=== PATIENT | male | born 1980 | race African-American/Black ===

== ENCOUNTER 2017-03-04 13:43 | Emergency (ER) | payer SELFPAY ==
[~2017-03-04] VITALS: Ht 190.5 cm; Wt 72.6 kg
[2017-03-04 13:50] VITALS: BP 126/80
[2017-03-04] MEDS ORDERED: KETOROLAC TROMETHAMINE INJ 30 MG/ML VIAL IM ONE (14:00)
[2017-03-04] MEDS ORDERED: KETOROLAC TROMETHAMINE INJ 30 MG/ML VIAL ONE (14:06)
[2017-03-04] MEDS ORDERED: IBUPROFEN 400 MG TABLET ONE (14:27)
--- NOTE | 2017-03-04 14:32 | NUR ---
PT REFUSED TORADOL, STATES HE DOES NOT WANT A SHOT. ORDER FOR IBUPROFEN 800MG RECEIVED AND ADMINISTERED.
[2017-03-04] MEDS ORDERED: IBUPROFEN 400 MG TABLET PO ONE (15:00)
== END 2017-03-04 16:05 | disposition home or self-care (01) ==
LOC: ER 13:45
DX: S70.12XA Contusion of left thigh, initial encounter (principal); Z88.8 Allergy status to other drugs, medicaments and biological substances; W22.8XXA Striking against or struck by other objects, initial encounter; Y93.89 Activity, other specified; Y92.89 Other specified places as the place of occurrence of the external cause; Y99.9 Unspecified external cause status
CPT/HCPCS: 73550-TC; A4606; J1885; Z7610

== ENCOUNTER 2018-12-19 19:33 | Inpatient (IN) | payer OTHER ==
[~2018-12-19] VITALS: Ht 190.5 cm; Wt 78.0 kg
[~2018-12-19 19:33] MED LIST: RIVA10TA PO
--- NOTE | 2018-12-19 19:45 | NUR ---
JASSI TOMLIN AT BEDSIDE.
--- NOTE | 2018-12-19 19:45 | NUR ---
PT CAME TO EMERGENCY COMPLAINING OF R SIDE CHEST PAIN 9/10 NON RADIATING, THAT STARTED 30 MIN AGO. PT STATES HE HAS A HX OF DVT. PT AAXO4. RESPIRATIONS EVEN AND UNLABORED. PT PUT ON THE MONITOR AND PULSE OX. PENDING EVAL FROM ER .
--- NOTE | 2018-12-19 19:47 | NUR ---
MULE PACKER AT BEDSIDE. LABS SENT.
--- NOTE | 2018-12-19 19:50 | NUR ---
EMT AT BEDSIDE FOR EKG.
[2018-12-19] MEDS ORDERED: KETOROLAC TROMETHAMINE 15 MG/ML VIAL ONE (19:58)
[2018-12-19 19:59] LABS: BASOPHILS % (AUTO) 0.7 % (0.0-2.0); EOSINOPHILS % (AUTO) 0.5 % (0.0-6.0); HEMATOCRIT 44 % (39-51); HEMOGLOBIN 14.2 g/dL (13.5-17.5); LYMPHOCYTES # (AUTO) 2.1 /CMM (0.8-4.8); LYMPHOCYTES % (AUTO) 29.5 % (20.0-44.0); MEAN CORPUSCULAR HGB CONC 32 g/dl (31.0-36.0); MEAN CORPUSCULAR VOLUME 90 fL (80-96); MONOCYTES # (AUTO) 0.7 /CMM (0.1-1.30); MONOCYTES % (AUTO) 9.6 % (2.0-12.0); NEUTROPHILS # (AUTO) 4.2 /CMM (1.8-8.9); NEUTROPHILS % (AUTO) 59.7 % (43.0-81.0); PLATELET COUNT (AUTO) 103 /CMM (150-450)
[2018-12-19] MEDS ORDERED: KETOROLAC TROMETHAMINE INJ 30 MG/ML VIAL IV ONE (20:00)
[2018-12-19] MEDS ORDERED: IV NS 0.9% 1,000 ML BAG IV ONE (20:00)
[2018-12-19] MEDS ORDERED: CT SWABBABLE VALVE TRANS SET 1 EA INFUS.SET MC ONE (20:07)
[2018-12-19] MEDS ORDERED: IV NS 0.9% 250 ML IV ONE (20:07)
[2018-12-19] MEDS ORDERED: IOHEXOL-350 100 ML VIAL IV ONE (20:07)
[2018-12-19 20:09] LABS: CALCIUM, SERUM 9.1 mg/dL (8.5-10.1); CREATININE 1.1 mg/dL (0.6-1.3); POTASSIUM 3.9 mmol/L (3.5-5.1)
--- NOTE | 2018-12-19 20:10 | NUR ---
PT TAKEN TO CT.
[2018-12-19 20:15] LABS: ALBUMIN 3.7 g/dL (3.4-5.0); BILIRUBIN,DIRECT 0.1 mg/dL (0.0-0.2); BILIRUBIN,TOTAL 0.3 mg/dL (0.2-1.0); TOTAL PROTEIN, SERUM 7.7 g/dL (6.4-8.2)
--- NOTE | 2018-12-19 20:16 | NUR ---
PT RETURNED FROM CT.
[2018-12-19] MEDS ORDERED: HEPARIN SODIUM, PORCINE 5000 UNITS/1 ML VIAL ONE (20:46)
[2018-12-19] MEDS ORDERED: HEPARIN SODIUM, PORCINE 5000 UNITS/1 ML VIAL IV ONE (21:00)
[2018-12-19] MEDS ORDERED: HEPARIN INFUSION/D5W 500 ML IV ONE (21:00)
[2018-12-19] MEDS ORDERED: ASPIRIN 81 MG TAB.CHEW PO ONE (21:00)
[2018-12-19] MEDS ORDERED: ASPIRIN 81 MG TAB.CHEW ONE (21:03)
--- NOTE | 2018-12-19 21:05 | NUR ---
2ND CALL MELIZA GOTTI PAGED.
--- NOTE | 2018-12-19 21:11 | NUR ---
Patient being monitored and is resting comfortably in bed. NAD noted. Pt saturation at 100%.
--- NOTE | 2018-12-19 21:53 | NUR ---
REPORT GIVEN T FERNANDO PRESCOTT RN FOR [facility].
[2018-12-19] MEDS ORDERED: Z GUARD REMEDY 2 OZ OINT TP PRN (22:00)
[2018-12-19] MEDS ORDERED: MAGNESIUM HYDROXIDE 30 ML UDC PO PRN (22:00)
[2018-12-19] MEDS ORDERED: ACETAMINOPHEN 325 MG TABLET PO PRN (22:00)
[2018-12-19] MEDS ORDERED: ZOLPIDEM TARTRATE 5 MG TABLET PO PRN (22:00)
[2018-12-19] MEDS ORDERED: MAG HYDROX/AL HYDROX/SIMETH 30 ML UDC PO PRN (22:00)
[2018-12-19] MEDS ORDERED: IV D5/ 0.9% NACL 1,000 ML IV PRN (22:00)
[2018-12-19] MEDS ORDERED: MORPHINE SULFATE INJ 2 MG/ML DISP.SYRIN IV PRN (22:00)
[2018-12-19] MEDS ORDERED: ONDANSETRON HCL/PF 4 MG/2 ML VIAL IVP PRN (22:00)
[2018-12-19 22:30] VITALS: BP 147/101
--- NOTE | 2018-12-19 22:30 | NUR ---
ANALOG DESIGN ENGINEER NOTE PT RECEIVED A/O X4 AND ABLE TO VERBALIZE NEEDS. NO C/O CHEST PAIN AT THIS TIME. ON 2L OF NC AND SATURATING WELL. BREATHING REGULAR AND UNLABORED. NO DISTRESS OR DISCOMFORT NOTED. IV RAC #20 CLEAN AND DRY WITH HEPARIN INFUSING. CALL LIGHT WITHIN REACH. WILL MONITOR.
[2018-12-19 23:00] VITALS: BP 145/119
[2018-12-19] MEDS: HEPARIN INFUSION/D5W 500 ML IV PRN (23:12)
[2018-12-19] MEDS: HYDROCODONE/APAP 5/325MG 1 EACH TABLET PO PRN (23:37)
[2018-12-20] VITALS (16 sets, daily range): BP systolic 114–148; BP diastolic 63–89
[2018-12-20 03:12] LABS: BASOPHILS % (AUTO) 0.4 % (0.0-2.0); EOSINOPHILS % (AUTO) 0.3 % (0.0-6.0); HEMATOCRIT 39 % (39-51); HEMOGLOBIN 12.7 g/dL (13.5-17.5); LYMPHOCYTES # (AUTO) 2.6 /CMM (0.8-4.8); LYMPHOCYTES % (AUTO) 38.3 % (20.0-44.0); MEAN CORPUSCULAR HGB CONC 33 g/dl (31.0-36.0); MEAN CORPUSCULAR VOLUME 88 fL (80-96); MONOCYTES # (AUTO) 0.6 /CMM (0.1-1.30); MONOCYTES % (AUTO) 8.5 % (2.0-12.0); NEUTROPHILS # (AUTO) 3.6 /CMM (1.8-8.9); NEUTROPHILS % (AUTO) 52.5 % (43.0-81.0); PLATELET COUNT (AUTO) 86 /CMM (150-450); WHITE BLOOD COUNT (AUTO) 6.8 K/uL (4.3-11.0)
[2018-12-20 03:37] LABS: CALCIUM, SERUM 8.1 mg/dL (8.5-10.1); CREATININE 1.3 mg/dL (0.6-1.3); MAGNESIUM 1.9 mg/dL (1.8-2.4); PHOSPHORUS 3.8 mg/dL (2.5-4.9); POTASSIUM 4.1 mmol/L (3.5-5.1)
[2018-12-20 03:48] LABS: THYROID STIMULATING HORMONE 1.427 uIU/mL (0.358-3.74)
[2018-12-20 05:11] LABS: APPEARANCE,URINE CLEAR (CLEAR); BILIRUBIN,URINE NEGATIVE (NEGATIVE); BLOOD, URINE NEGATIVE Ery/uL (NEGATIVE); COLOR,URINE YELLOW (YELLOW); KETONES,URINE NEGATIVE (NEGATIVE); LEUKOCYTE ESTERASE ,URINE NEGATIVE (NEGATIVE); NITRITE, URINE NEGATIVE (NEGATIVE); PH,URINE 6.5 (5.0-8.0); PROTEIN,URINE NEGATIVE (NEGATIVE); UGLUCOSE NEGATIVE (NEGATIVE); UROBILINOGEN,URINE 0.2 EU/dL (0.2)
[2018-12-20 06:22] LABS: MONOCYTES % (MANUAL) 4 % (0-11.0)
[2018-12-20 06:23] LABS: LYMPHOCYTES % (MANUAL) 36 % (16-48); NEUTROPHILS % (MANUAL) 60 (42-76)
[2018-12-20] MEDS: HYDROCODONE/APAP 5/325MG 1 EACH TABLET PO PRN ×4 (07:26→21:55)
--- NOTE | 2018-12-20 07:31 | NUR ---
MECHANISM ASSEMBLER NOTE PT REMAINED STABLE DURING SHIFT. NO ACUTE DISTRESS NOTED. PAIN MANAGED WITH PAIN MEDICATIONS. HEPARIN DRIP INFUSING. ALL NEEDS ATTENDED TO PROMPTLY. NPO STATUS MAINTAINED. WILL ENDORSE TO NEXT SHIFT FOR CONTINUITY OF CARE.
[2018-12-20] MEDS: PANTOPRAZOLE 40 MG VIAL IV SCH (08:28)
--- NOTE | 2018-12-20 08:36 | NUR ---
RN NOTE 0715: Received patient A/Ox4, aware for the POC. On room air, no respiratory distress noted at this time, 99% O2 sat. With PIVs intact, IVF ongoing as ordered. On Heparin drip @ 1300units/hr. 0815: S/E by Dr. Winston with order to start on Coumadin. licensed chemical spray technician at bedside, also done with KAROLINA melendez, still with RLE DVT. 0835: No any significant changes. Placed back O2 @ 2LPM NC, will continue to monitor.
--- NOTE | 2018-12-20 13:34 | NUR ---
RN NOTE Patient VS remained stable. With PIVs intact. Heparin infusing @ 1300 units/hr. Endorsed care to Karlie GOODRICH with Jennifer RN for J[facility]. Transferred via bed. Belongings checked. No any significant changes noted. Kept on 2LPM of O2via NC. Brought lunch tray with the patient.
--- NOTE | 2018-12-20 13:40 | NUR ---
CREATIVE RECRUITER NOTE RECEIVED REPORT FROM ALEX. PATIENT CAME IN VIA GURNEY. A&Ox4 AWAKE AND ALERT. ON TELE MONITOR SB HR 56. PATIENT STATES THAT HE IS AN ACTIVE PERSON. SKIN IS INTACT. HAS A RIGHT AC #20 SL AND RIGHT FA #18 WITH HEPARIN DRIP RUNNING AT 1300 UNITS/HR. NO COMPLAINS OF ANY PAIN AT THIS TIME. NO SOB NO DISTRESS. BED LOCKED AND ON LOWEST POSITION. CALL LIGHT WITHIN REACH. WILL CONT TO MONITOR.
[2018-12-20] MEDS: HEPARIN INFUSION/D5W 500 ML IV PRN (15:13)
--- NOTE | 2018-12-20 15:37 | NUR ---
RN TD NOTE PATIENT REFUSED MORPHINE AND WILL WAIT FOR NORCO.
[2018-12-20] MEDS ORDERED: WARFARIN SODIUM 7.5 MG TABLET PO SCH (17:00)
--- NOTE | 2018-12-20 19:14 | NUR ---
RN CLOSING NOTE PATIENT A&Ox4 AWAKE AND ALERT. ON TELE MONITOR SB HR 50s. RIGHT AC #20 STILL SL AND RIGHT FA #18 WITH HEPARIN DRIP RUNNING AT 1300 UNITS/HR. NO COMPLAINS OF ANY PAIN AT THIS TIME. NO SOB NO DISTRESS. BED LOCKED AND ON LOWEST POSITION. CALL LIGHT WITHIN REACH. WILL CONT TO MONITOR Addendum: 12/20/18 at 1915 by TARSHA SANTANA RN WILL ENDORSE TO NOC SHIFT
[2018-12-21] VITALS: BP 119/63
[2018-12-21 04:00] VITALS: BP 137/84
[2018-12-21] MEDS: HYDROCODONE/APAP 5/325MG 1 EACH TABLET PO PRN (05:42)
--- NOTE | 2018-12-21 07:05 | NUR ---
BRENDA RN OPENING NOTES RECEIVED PT LYING ON BED. A&Ox4 AWAKE AND ALERT. ON TELE MONITOR SB HR 60. ON 2L VIA NC, TOLERATING WELL. NO SOB NOTED. IV SITE ON RIGHT AC #20 SL AND RIGHT FA #18 WITH HEPARIN DRIP RUNNING AT 1300 UNITS/HR. NO COMPLAINS OF ANY PAIN AT THIS TIME. NO SOB NO DISTRESS. BED LOCKED AND ON LOWEST POSITION. CALL LIGHT WITHIN REACH. WILL CONT TO MONITOR PT THROUGHOUT SHIFT.
[2018-12-21 07:56] LABS: FERRITIN 101 ng/mL (8-388)
[2018-12-21 08:00] VITALS: BP 129/74
--- NOTE | 2018-12-21 08:00 | NUR ---
BRENDA RN NOTES ,NURSES SUPERINTENDENT SEEN AND ASSESSED THE PT AND ORDERED PT CAN TAKE SHOWER AFTER DISCONNECTING THE HEPARIN DRIP WHENEVER THE PT NEEDS.NEW ORDERS NOTED AND CARRIED OUT.
[2018-12-21] MEDS: PANTOPRAZOLE 40 MG VIAL IV SCH (08:11)
[2018-12-21 09:18] LABS: IRON, SERUM 33 ug/dl (50-175); TOTAL IRON BINDING CAPACITY 255 ug/dl (250-450)
--- NOTE | 2018-12-21 10:30 | NUR ---
BLOCK GREASER NOTES PT C/O HIS WHITE LG PHONE DISPLAY IS CRACKED AND HE IS TELLING WHO EVER CHANGED THE BED,THEY DONE IT.BUT NOBODY WITNESSED IT.PT GOT ANGRY AND BURSTING OUT.AND HE SAID THE FACILITY NEEDS TO PAY AND HE WANTS TO LEAVE RIGHT NOW.CHARGE NURSE AND DISTRIBUTION OPERATIONS SUPERVISOR SHWETHA ABBASI MADE AWARE.ORDERED TO D/C TO HOME.
[2018-12-21 10:50] LABS: BASOPHILS % (AUTO) 0.5 % (0.0-2.0); HEMATOCRIT 44 % (39-51); HEMOGLOBIN 14.4 g/dL (13.5-17.5); LYMPHOCYTES # (AUTO) 1.6 /CMM (0.8-4.8); LYMPHOCYTES % (AUTO) 23.5 % (20.0-44.0); MEAN CORPUSCULAR HGB CONC 33 g/dl (31.0-36.0); MEAN CORPUSCULAR VOLUME 88 fL (80-96); MONOCYTES # (AUTO) 0.6 /CMM (0.1-1.30); MONOCYTES % (AUTO) 8.3 % (2.0-12.0); NEUTROPHILS # (AUTO) 4.6 /CMM (1.8-8.9); NEUTROPHILS % (AUTO) 67.7 % (43.0-81.0); PLATELET COUNT (AUTO) 100 /CMM (150-450); WHITE BLOOD COUNT (AUTO) 6.9 K/uL (4.3-11.0)
--- NOTE | 2018-12-21 11:30 | NUR ---
NEONATAL NURSE NOTES PATIENT REQUESTED FOOD, WENT TO [facility] FOR PATIENT'S FOOD BUT [facility] STAFF SAID FOOD WILL COME IN 10-15 MINUTES. AWAITING FOR FOOD TO COME.
[2018-12-21] MEDS: HEPARIN INFUSION/D5W 500 ML IV PRN (11:33)
--- NOTE | 2018-12-21 11:33 | NUR ---
INVESTMENT MANAGER NOTES NEW BAG OF IV HEPARIN IS STARTED.NO COMPLICATIONS NOTED AND NO BLEEDING NOTED.
--- NOTE | 2018-12-21 12:15 | NUR ---
LIQUOR BLENDER NOTES PT NOTED WITH ANGRY AND AGITATED,SAID"I WANT TO LEAVE RIGHT NOW".TRIED TO CALM DOWN BUT STILL IS ANGRY AND DECIDED TO LEAVE NOW ITSELF.HE SAID TAKE OUT THE IV ACCESS NOW.AUDIT CONSULTANT SHWETHA ABBASI ORDERED TO DISCHARGE TO HOME WITH PARADOXONE.PRESCRIPTION GIVEN TO THE PT HAND.D/C IV ACCESS AND STOP THE IV HEPARIN.CHARGE NURSE MADE AWARE.MILD BLEEDING NOTED AND PRESSURE DRESSING HAS DONE.
--- NOTE | 2018-12-21 12:30 | NUR ---
PIPE STRESS ENGINEERSCIENTIFIC AFFAIRS MANAGER NOTES ORDERED FOR DISCHARGE TO HOME.ALL THE DISCHARGE MEDICATIONS AND FOLLOW UP APPOINTMENT HAS DISCUSSED WITH THE JUWAN(FRIENDS).PRESCRIPTION GIVEN TO THE PT HAND.IV LINE IS D/C AND DRESSING HAS DONE.NOEL MEDICAL EQUIPMENT REPAIRER MADE AWARE BY THE CHARGE NURSE.BELONGING LIST HAS SIGNED BY THE PT.
[2018-12-23 08:07] LABS: IMMUNOGLOBULIN A, SERUM 116 mg/dL (90-386); IMMUNOGLOBULIN G, SERUM 1144 mg/dL (700-1600); IMMUNOGLOBULIN M, SERUM 45 mg/dL (20-172)
[2018-12-23 11:12] LABS: *SPE ALBUMIN 3.1 g/dL (2.9-4.4); *SPE ALPHA-1-GLOBULIN 0.3 g/dL (0.0-0.4); *SPE ALPHA-2-GLOBULIN 0.9 g/dL (0.4-1.0); *SPE GLOBULIN, TOTAL 3.2 g/dL (2.2-3.9); *SPE M-SPIKE Not Observed g/dL (Not Observed)
== END 2018-12-21 12:30 | disposition home or self-care (01) | DRG 134 ==
LOC: ER 19:35 → ICU 21:52 → TELE-TD 12-20 13:15 → TELE1 12-21 10:12
PROVIDERS: ADMIT Hospitalist; ATTEND Nurse Practitioner Acute Care
DX: I26.99 Other pulmonary embolism without acute cor pulmonale (principal); D69.59 Other secondary thrombocytopenia; F17.200 Nicotine dependence, unspecified, uncomplicated; Z79.01 Long term (current) use of anticoagulants; Z91.14 Patient's other noncompliance with medication regimen; Z91.19 Patient's noncompliance with other medical treatment and regimen; F32.9 Major depressive disorder, single episode, unspecified; Z88.6 Allergy status to analgesic agent; Z88.8 Allergy status to other drugs, medicaments and biological substances; F12.11 Cannabis abuse, in remission; I82.411 Acute embolism and thrombosis of right femoral vein; I82.431 Acute embolism and thrombosis of right popliteal vein; D64.9 Anemia, unspecified
CPT/HCPCS: 36415; 76700-TC; 80048-TC; 80061-TC; 80076-TC; 80305; 81000-TC; 82728-TC; 82784; 83540-TC; 83690-TC; 83735-TC; 84100-TC; 84155; 84165; 84443-TC; 84484-TC; 85025-TC; 85610-TC; 85730-TC; 86334; 87081-TC; 93307-TC; 93970-TC; A6402; C9113; G0378; J1644; J1885; J2270; J7030; J7042; J7050; Q9967

== ENCOUNTER 2018-12-25 15:33 | Emergency (ER) | payer OTHER ==
[~2018-12-25] VITALS: Ht 190.5 cm; Wt 78.0 kg
--- NOTE | 2018-12-25 15:46 | NUR ---
patient presented to ER c/o chest pain x 1 week, non-radiating. on room air, breathinge venly and unlabored. connected to the monitor, kept comfortable. will continue to monitor accordingly.
[2018-12-25 16:19] LABS: BASOPHILS % (AUTO) 0.6 % (0.0-2.0); EOSINOPHILS % (AUTO) 0.5 % (0.0-6.0); HEMATOCRIT 41 % (39-51); HEMOGLOBIN 13.3 g/dL (13.5-17.5); LYMPHOCYTES % (AUTO) 33.7 % (20.0-44.0); MEAN CORPUSCULAR HGB CONC 33 g/dl (31.0-36.0); MEAN CORPUSCULAR VOLUME 89 fL (80-96); MONOCYTES # (AUTO) 0.5 /CMM (0.1-1.30); MONOCYTES % (AUTO) 8.9 % (2.0-12.0); NEUTROPHILS # (AUTO) 3.3 /CMM (1.8-8.9); NEUTROPHILS % (AUTO) 56.3 % (43.0-81.0); PLATELET COUNT (AUTO) 122 /CMM (150-450); RED BLOOD CELL COUNT(AUTO) 4.54 MIL/uL (4.5-6.0); WHITE BLOOD COUNT (AUTO) 5.9 K/uL (4.3-11.0)
[2018-12-25] MEDS ORDERED: HYDROCODONE/APAP 5/325MG 1 EACH TABLET ONE (16:25)
[2018-12-25 16:31] LABS: CALCIUM, SERUM 9.1 mg/dL (8.5-10.1); CARBON DIOXIDE 32 mmol/L (21-32); CHLORIDE 106 mmol/L (98-107); CREATININE 1.2 mg/dL (0.6-1.3); GLUCOSE 86 mg/dL (74-106); POTASSIUM 3.9 mmol/L (3.5-5.1); SODIUM SERUM 144 mmol/L (136-145); UREA NITROGEN, BLOOD 13 mg/dL (7-18)
[2018-12-25] MEDS: IV NS 0.9% 500 ML BAG IV ONE (16:33)
[2018-12-25] MEDS: HYDROCODONE/APAP 5/325MG 1 EACH TABLET PO ONE (16:33)
[2018-12-25 16:47] LABS: ALANINE AMINOTRANSFERASE 20 U/L (12-78); ALBUMIN 3.4 g/dL (3.4-5.0); ALKALINE PHOSPHATASE 77 U/L (46-116); ASPARTATE AMINOTRANSFERASE 18 U/L (15-37); BILIRUBIN,DIRECT 0.1 mg/dL (0.0-0.2); BILIRUBIN,TOTAL 0.4 mg/dL (0.2-1.0); TOTAL PROTEIN, SERUM 7.5 g/dL (6.4-8.2)
[2018-12-25] MEDS ORDERED: CT SWABBABLE VALVE TRANS SET 1 EA INFUS.SET MC ONE ×2 (16:48→16:55)
[2018-12-25] MEDS ORDERED: IOHEXOL-350 100 ML VIAL IV ONE ×2 (16:48→16:55)
[2018-12-25] MEDS ORDERED: IV NS 0.9% 250 ML IV ONE (16:48)
--- NOTE | 2018-12-25 18:08 | NUR ---
CALLED Corey Conroy MD LEFT MS.
[2018-12-25] MEDS ORDERED: HYDR-4354 PO (18:25)
[2018-12-25] MEDS ORDERED: DABI150C PO (18:25)
--- NOTE | 2018-12-25 18:47 | NUR ---
CALLED Corey Conroy MD LEFT
--- NOTE | 2018-12-25 19:29 | NUR ---
Endorsed given to samantha finn for darvin.
--- NOTE | 2018-12-25 19:46 | NUR ---
CALLED Corey Conroy MD LEFT A MSG
--- NOTE | 2018-12-25 20:01 | NUR ---
Pt being monitored and resting in bed. NAD noted.
--- NOTE | 2018-12-25 21:36 | NUR ---
Patient being monitored and is resting comfortably in bed with eyes closed. Easily aroused.
--- NOTE | 2018-12-25 21:52 | NUR ---
Pt accepted by Dr Clayton at [facility]. Room 209. # for report [phone]
--- NOTE | 2018-12-25 21:58 | NUR ---
[facility] called for ALS transport. ETA [id number], trip# [id number]
--- NOTE | 2018-12-25 22:39 | NUR ---
REPORT GIVEN TO BRODY GOODRICH AT [facility].
--- NOTE | 2018-12-25 23:25 | NUR ---
REPORT GIVEN TO [facility] FOR TRANSPORT ALS.
[2018-12-25 23:28] VITALS: BP 137/78
== END 2018-12-25 23:28 ==
LOC: ER 15:33
DX: I26.99 Other pulmonary embolism without acute cor pulmonale (principal); F31.9 Bipolar disorder, unspecified; F17.200 Nicotine dependence, unspecified, uncomplicated; Z86.718 Personal history of other venous thrombosis and embolism; Z88.6 Allergy status to analgesic agent; Z88.8 Allergy status to other drugs, medicaments and biological substances
CPT/HCPCS: 36415; 71045-TC; 80048-TC; 80076-TC; 84484-TC; 85025-TC; 85730-TC; J7040; J7050; Q9967